=== PATIENT | male | born 1975 | race Caucasian/White ===

== ENCOUNTER 2016-09-29 08:41 | Emergency (ER) | payer MEDICAID ==
[~2016-09-29] VITALS: Ht 157.5 cm; Wt 87.5 kg
[~2016-09-29 08:41] MED LIST: BEN25 PO; FAMO-18 PO; PRED20TA PO
[2016-09-29 08:44] VITALS: Ht 157.5 cm; Wt 87.5 kg
[2016-09-29 09:48] LABS: BASOPHILS % 0.4 % (0.0-2.0); EOSINOPHILS # 0.3 10^3/ul (0.0-0.5); EOSINOPHILS % 2.6 % (0.0-7.0); HEMATOCRIT 51.5 % (42.0-52.0); HEMOGLOBIN 17.6 g/dl (14.0-18.0); LYMPHOCYTES # 2.4 10^3/ul (0.8-2.9); LYMPHOCYTES % 23.9 % (15.0-51.0); MEAN CORPUSCULAR HEMOGLOBIN 30.3 pg (29.0-33.0); MEAN CORPUSCULAR HGB CONC 34.3 g/dl (32.0-37.0); MEAN CORPUSCULAR VOLUME 88.5 fl (82.0-101.0); MEAN PLATELET VOLUME 8.2 fl (7.4-10.4); MONOCYTE # 0.6 10^3/ul (0.3-0.9); NEUTROPHIL # 6.8 10^3/ul (1.6-7.5); NEUTROPHILS % 67.1 % (39.0-77.0); PLATELET COUNT 231 10^3/UL (140-440); RED BLOOD COUNT 5.82 10^6/ul (4.70-6.10); RED CELL DISTRIBUTION WIDTH 13.1 % (11.5-14.5); UNCORRECTED WBC 10.1 10^3/ul (4.8-10.8); WHITE BLOOD COUNT 10.1 10^3/ul (4.8-10.8)
[2016-09-29 09:51] LABS: CONDITION 1
[2016-09-29] MEDS ORDERED: KENC1 TOP (10:51)
[2016-09-29] MEDS ORDERED: CETI10CA PO (10:51)
--- NOTE | 2016-09-29 11:09 | ERD ---
ER Documentation Chief Complaint Date/Time DATE: 09/29/16 TIME: 10:57 Chief Complaint allergic reaction x 8 days HPI Patient is a 40-year-old male who presents to the ED for rash. He states that he has had a rash for 10 days. He states that his rash has gotten better. He was seen in the ED at [facility] last week and states that he was given an injection, and he finished his prednisone and medication that was given to him. However he states that the rash comes and goes. He describes it as a hot itchy rash. It is located all over his body. However he does not have any rashes right now. He is here because he would like to get blood work regarding his rash. He also states that he has burning with urination. He denies penile discharge. He denies rashes on his penis. He denies fever, chills. He also complains of reproducible chest pressure. He states that when he pushes on his chest, he gets pressure sensation inside. He denies this with exacerbation. He denies radiation of pain. He denies leg pain or swelling. Denies SOB, chest pain or difficulty breathing. ROS All systems reviewed and are negative except as per history of present illness. Medications Home Meds Active Scripts Triamcinolone Acetonide (Triamcinolone Acetonide) 0.1% - 15 Gm Cream.gm., 1 APPLIC TOP BID, #1 TUB Prov:NAVA OROZCO PA-C 09/29/16 Cetirizine Hcl* (Zyrtec*) 10 Mg Capsule, 10 MG PO DAILY, #30 TAB.CHEW Prov:NAVA OROZCO PA-C 09/29/16 Prednisone* (Prednisone*) 20 Mg Tab, 40 MG PO DAILY for 4 Days, TAB Prov:BRYON SAM PA-C 09/22/16 Diphenhydramine Hcl* (Benadryl*) 25 Mg Cap, 25 MG PO Q6 Y for ITCHING/RASH, #20 TAB Prov:BRYON SAM PA-C 09/22/16 Famotidine* (Pepcid*) 20 Mg Tablet, 20 MG PO BID for 4 Days, #20 TAB Prov:BRYON SAM PA-C 09/22/16 Allergies Allergies: Coded Allergies: No Known Allergy (Unverified , 10/19/14) PMhx/Soc Medical and Surgical Hx: pt denies Medical Hx, pt denies Surgical Hx Hx Alcohol Use: No Hx Substance Use: No Hx Tobacco Use: No Physical Exam Vitals Vital Signs Date Time Temp Pulse Resp B/P Pulse Ox O2 Delivery O2 Flow Rate FiO2 09/29/16 08:44 98.0 95 18 143/80 99 Physical Exam GENERAL: Well-developed, well-nourished male. Appears in no acute distress. HEAD: Normocephalic, atraumatic. EYES: Pupils are equally reactive bilaterally. EOMs grossly intact. No conjunctival erythema. NECK: Supple. No lymphadenopathy or thyromegaly. No meningismus. LUNG: Clear to auscultation bilaterally. No rhonchi, wheezing, rales or coarse breath sounds. HEART: Regular rate and rhythm. No murmurs, rubs or gallops. ABDOMEN: No scars, ecchymosis or rashes noted. Soft, nontender, and nondistended. Positive bowel sounds in all four quadrants. No rebound tenderness , no guarding. (-) McBurneys point tenderness. No CVA tenderness. BACK: No midline tenderness. Extremities: Equal pulses bilaterally. No peripheral clubbing, cyanosis or edema. No unilateral leg swelling. negative Niles sign. NEUROLOGIC: Alert and oriented. Moving all four extremities. 5/5 strength in all extremities. Normal speech. Steady gait. SKIN: Normal color. Warm and dry. few dermatographic erythematous rashes on arms. no drainage, signs of infection, swelling or warmth. no rashes on penis. Capillary refill < 2 seconds Result Diagram: 09/29/16 0930 Results 24 hrs Laboratory Tests Test 09/29/16 09:30 Basophils # 0.010^3/ul Basophils % 0.4% Eosinophils # 0.310^3/ul Eosinophils % 2.6% Hematocrit 51.5% Hemoglobin 17.6g/dl Lymphocytes # 2.410^3/ul Lymphocytes % 23.9% Mean Corpuscular Hemoglobin 30.3pg Mean Corpuscular Hemoglobin Concent 34.3g/dl Mean Corpuscular Volume 88.5fl Mean Platelet Volume 8.2fl Monocytes # 0.610^3/ul Monocytes % 6.0% Neutrophils # 6.810^3/ul Neutrophils % 67.1% Nucleated Red Blood Cells # 0.010^3/ul Nucleated Red Blood Cells % 0.0/100WBC Platelet Count 15668^3/UL Rapid Plasma Reagin NONREACTIVE Red Blood Count 5.8210^6/ul Red Cell Distribution Width 13.1% White Blood Count 10.110^3/ul Procedures/MDM ER COURSE: I kept the patient and/or family informed of laboratory and diagnostic imaging results throughout the emergency room course. EKG, MONITORS, & DIAGNOSTIC IMAGING: EKG performed, read by Dr. Wilde 61 bpm, normal sinus rhythm, normal axis, no acute ST segment changes, no T wave inversion LAB INTERPRETATION: CBC showed no evidence of systemic infection or severe anemia. UA showed no evidence of acute infection or hematuria.. MEDICAL DECISION MAKING: This is a 40-year-old male who presents with rash. Vital signs were reviewed. Patient is afebrile. Patient is not hypoxic. Patient is not toxic or ill- appearing. Temperature 98.0, pulse 95, blood pressure 143/80. Patient has rash of uncertain etiology, likely urticaria versus dermatographism. In the ED patient has very minimal erythematous rash on his body. Low suspicion for necrotizing fasciitis, SJS, toxic epidermal necrolysis, Kawasaki, erythema multiforme, gangrene, scarlet fever, meningococcemia, sepsis, anaphylaxis. I also have low suspicion for UTI, pyelonephritis, nephrolithiasis. Low suspicion for any cardiac emergencies. According to the heart score patient has a very low risk. Patient does not have any risk factors. Low suspicion for ACS, PE, AAA, dissection, DVT. DISCHARGE: At this time, patient is stable for discharge and outpatient management with no new complaints during the ER course. Patient was sent home with Zyrtec, triamcinolone cream. Patient will be discharged home with instructions to recheck for new or worsening symptoms such as fever, nausea, weakness, LOC and to follow up with primary care in the next 1-2 days. Advised patient to follow- up with dermatology and possible behavioral health director for further evaluation. Names of clinics in the area were given to patient to follow-up. Patient was advised to return to the ER for any new or worsening symptoms. Plan was discussed and patient and/or family understands and agrees. Home instructions were given. Departure Diagnosis: Primary Impression: Rash Condition: Stable Ref[facility] Usted se claire hecho un examen mdico de control que le indica que no est en gabriela condicin que requiera tratamiento urgente en el Departamento de Emergencia. Un estudio ms profundo y el tratamiento de vega condicin pueden esperar sin ningn riesgo hasta que usted sea atendida/o en el consultorio de vega mdico o gabriela cl pattie. Es responsabilidad suya arreglar gabriela niurka para el seguimiento del lito. MANEJO DE CONDICIONES NO URGENTES EN EL FUTURO 1) Si usted tiene un mdico de atencin primaria: Usted debera llamar a vega mdico de atencin primaria antes de venir al departamento de emergencia. Despus de las horas de consultorio, vega doctor o vega asociado/a est disponible por telfono. El mdico o enfermero de jennie en el servicio telefnico puede asesorarle por roma medio para atender el problema, o lito contrario se puede programar gabriela niurka. 2) Si usted no tiene un mdico de atencin primaria: Llame al mdico o clnica de referencia que aparece abajo bertha las horas de consultorio para hacer gabriela niurka para que le vean. CLINICAS: [facility] [phone] [facility] [phone] [facility] [phone] [address] [facility] [facility] [phone] [id number] [facility] [place] [id number] [phone] [facility]. [phone] [facility] URGENT CARE/SPECIALTIES Additional Instructions: Call your primary care doctor TOMORROW for an appointment during the next 1-2 days.See the doctor sooner or return here if your condition worsens before your appointment time. NAVA OROZCO PA-C Sep 29, 2016 11:09
== END 2016-09-29 11:14 | disposition home or self-care (01) ==
LOC: FTE 08:41
DX: R21 Rash and other nonspecific skin eruption (principal); R07.89 Other chest pain
CPT/HCPCS: 85025; 86592; 87591; 93005; Z7502